=== PATIENT | female | born 1950 | race Caucasian/White ===

== ENCOUNTER → 2023-05-12 07:17 | Outpatient (REF) | payer MEDICARE, OTHER, SELFPAY ==
[2023-05-12 10:04] LABS: ALT (SGPT) 23 U/L (0-35); AST (SGOT) 36 U/L (14-36); Albumin 4.2 g/dl (3.5-5.0); Alkaline Phosphatase 58 U/L (38-126); Blood Urea Nitrogen 26 mg/dl (7-17); Calcium 9.4 mg/dl (8.4-10.2); Carbon Dioxide 28 mmol/L (22-30); Chloride 104 mmol/L (98-107); Creatine Phosphokinase 83 U/L (30-135); Glucose 91 mg/dl (70-99); Potassium 4.3 mmol/L (3.5-5.1); Sodium 137 mmol/L (135-145); Total Bilirubin 1.3 mg/dl (0.2-1.3); Total Protein 6.6 g/dl (6.3-8.2); eGFR > 60.00
[2023-05-13 12:04] LABS: Aldolase 3.2 U/L (1.2-7.6)
== END ==
LOC: REG 07:17
PROVIDERS: ATTENDING PHYSICIAN Internal Medicine
DX: M79.10 Myalgia, unspecified site (principal)
CPT/HCPCS: 36415; 80053; 82085; 82550

== ENCOUNTER → 2023-05-23 10:11 | Outpatient (REF) | payer MEDICARE, OTHER, SELFPAY ==
[2023-05-23 14:13] LABS: Lipase 75 U/L (23-300)
== END ==
LOC: REG 10:11
PROVIDERS: ATTENDING PHYSICIAN Internal Medicine; FAMILY PHYSICIAN Internal Medicine
DX: R11.0 Nausea (principal)
CPT/HCPCS: 36415; 83690

== ENCOUNTER → 2023-06-12 13:11 | Outpatient (REF) | payer MEDICARE, OTHER, SELFPAY | LOC: HWRAD 13:11 | PROVIDERS: ATTENDING PHYSICIAN Internal Medicine; FAMILY PHYSICIAN Internal Medicine | DX: R11.0 Nausea (principal) | CPT/HCPCS: 76700 ==

== ENCOUNTER → 2023-07-06 07:40 | Outpatient (REF) | payer MEDICARE, OTHER, SELFPAY ==
[2023-07-06 08:52] LABS: ALT (SGPT) 18 U/L (0-35); AST (SGOT) 31 U/L (14-36); Albumin 4.1 g/dl (3.5-5.0); Alkaline Phosphatase 57 U/L (38-126); Blood Urea Nitrogen 17 mg/dl (7-17); Calcium 9.6 mg/dl (8.4-10.2); Carbon Dioxide 31 mmol/L (22-30); Chloride 105 mmol/L (98-107); Glucose 101 mg/dl (70-99); HDL Cholesterol 94 mg/dl; LDL Cholesterol, Calculated 118 mg/dl; Potassium 4.5 mmol/L (3.5-5.1); Sodium 139 mmol/L (135-145); Total Bilirubin 1.1 mg/dl (0.2-1.3); Total Cholesterol 227 mg/dl (50-199); Total Protein 6.5 g/dl (6.3-8.2); Triglyceride 78 mg/dl (10-149); Very Low Density Lipoprotein 15 mg/dl (0-30); eGFR > 60.00
[2023-07-07 23:21] LABS: Lipoprotein a (Lp a) 39 mg/dL (<=29)
== END ==
LOC: REG 07:40
PROVIDERS: ATTENDING PHYSICIAN Internal Medicine Cardiovascular Disease; FAMILY PHYSICIAN Internal Medicine
DX: E78.00 Pure hypercholesterolemia, unspecified (principal)
CPT/HCPCS: 36415; 80053; 80061; 83695

== ENCOUNTER → 2023-10-09 07:41 | Outpatient (REF) | payer MEDICARE, OTHER, SELFPAY ==
[2023-10-09 09:09] LABS: ALT (SGPT) 14 U/L (0-35); AST (SGOT) 30 U/L (14-36); Albumin 4.2 g/dl (3.5-5.0); Alkaline Phosphatase 62 U/L (38-126); Blood Urea Nitrogen 20 mg/dl (7-17); Calcium 10.2 mg/dl (8.4-10.2); Carbon Dioxide 32 mmol/L (22-30); Chloride 103 mmol/L (98-107); Glucose 112 mg/dl (70-99); HDL Cholesterol 85 mg/dl; LDL Cholesterol, Calculated 153 mg/dl; Potassium 4.5 mmol/L (3.5-5.1); Sodium 144 mmol/L (135-145); Total Bilirubin 1.2 mg/dl (0.2-1.3); Total Cholesterol 251 mg/dl (50-199); Total Protein 6.6 g/dl (6.3-8.2); Triglyceride 67 mg/dl (10-149); Very Low Density Lipoprotein 13 mg/dl (0-30); eGFR > 60.00
== END ==
LOC: REG 07:41
PROVIDERS: ATTENDING PHYSICIAN Internal Medicine Cardiovascular Disease; FAMILY PHYSICIAN Nurse Practitioner Family
DX: E78.00 Pure hypercholesterolemia, unspecified (principal)
CPT/HCPCS: 36415; 80053; 80061

== ENCOUNTER → 2023-11-23 09:26 | Outpatient (REF) | payer MEDICARE, OTHER, SELFPAY | LOC: MRI 3T 09:26 | PROVIDERS: ATTENDING PHYSICIAN Physician Assistant Surgical; FAMILY PHYSICIAN Family Medicine | DX: M25.561 Pain in right knee (principal) | CPT/HCPCS: 73721 ==

== ENCOUNTER → 2023-11-26 13:22 | Outpatient (REF) | payer MEDICARE, OTHER, SELFPAY ==
[2023-11-26 14:57] LABS: Uric Acid 3.3 mg/dl (2.5-6.2)
== END ==
LOC: REG 13:22
PROVIDERS: ATTENDING PHYSICIAN Family Medicine
DX: M79.675 Pain in left toe(s) (principal)
CPT/HCPCS: 36415; 73630; 84550

== ENCOUNTER → 2023-12-14 11:27 | Outpatient (REF) | payer MEDICARE, OTHER, SELFPAY ==
[2023-12-14 13:11] LABS: % Eosinophils 1.2 % (0-6); % Immature Granulocytes 0.2 % (0-0.5); % Lymphocytes 32.1 % (20.5-51.1); % Monocytes 10.5 % (1.7-9.3); Absolute Eosinophils 0.1 10^3/uL (0-0.7); Absolute Lymphocytes 1.4 10^3/uL (1.2-3.4); Absolute Monocytes 0.4 10^3/uL (0.1-0.6); Absolute Neutrophils 2.3 10^3/uL (1.4-6.5); Hematocrit 40.2 % (37.0-47.0); Hemoglobin 13.7 g/dL (12.0-16.0); Mean Corp Hgb Conc. 34.1 g/dL (33.0-37.0); Mean Corpuscular Hgb 32.7 pg (27.0-31.0); Mean Corpuscular Volume 95.9 fL (81.0-99.0); Mean Platelet Volume 10.8 fL (7.4-10.4); Nucleated Red Blood Cells % 0 %; Platelet Count 251 10^3/uL (130-400); Red Blood Cell Count 4.19 10^6/uL (4.20-5.40); Red Cell Dist. Width 12.6 % (11.5-14.5); White Blood Cell Count 4.2 10^3/uL (4.8-10.8)
[2023-12-14 13:31] LABS: ALT (SGPT) 24 U/L (0-35); AST (SGOT) 37 U/L (14-36); Albumin 4.6 g/dl (3.5-5.0); Alkaline Phosphatase 57 U/L (38-126); Blood Urea Nitrogen 19 mg/dl (7-17); Calcium 9.9 mg/dl (8.4-10.2); Carbon Dioxide 29 mmol/L (22-30); Chloride 102 mmol/L (98-107); Glucose 97 mg/dl (70-99); Potassium 4.8 mmol/L (3.5-5.1); Sodium 140 mmol/L (135-145); Total Bilirubin 0.8 mg/dl (0.2-1.3); Total Protein 7.1 g/dl (6.3-8.2); eGFR > 60.00
[2023-12-14 13:38] LABS: NT-proBNP 122 pg/ml
[2023-12-14 14:01] LABS: TSH Reflex To Free T4 0.98 uIU/ml (0.47-4.68)
== END ==
LOC: RAD 11:27
PROVIDERS: ATTENDING PHYSICIAN Nurse Practitioner Adult Health
DX: R06.02 Shortness of breath (principal); R00.2 Palpitations; F41.1 Generalized anxiety disorder; E03.9 Hypothyroidism, unspecified
CPT/HCPCS: 36415; 71046; 80053; 83880; 84443; 85025

== ENCOUNTER → 2023-12-28 08:11 | Outpatient (REF) | payer MEDICARE, OTHER, SELFPAY ==
[2023-12-28 11:12] LABS: Total Cholesterol 245 mg/dl (50-199); Triglyceride 56 mg/dl (10-149); Very Low Density Lipoprotein 11 mg/dl (0-30)
[2023-12-28 11:23] LABS: HDL Cholesterol 111 mg/dl; LDL Cholesterol, Calculated 123 mg/dl
== END ==
LOC: REG 08:11
PROVIDERS: ATTENDING PHYSICIAN Internal Medicine Cardiovascular Disease; FAMILY PHYSICIAN Family Medicine; REFERRING PHYSICIAN Internal Medicine Cardiovascular Disease
DX: E78.5 Hyperlipidemia, unspecified (principal)
CPT/HCPCS: 36415; 80061

== ENCOUNTER → 2023-12-31 20:12 | Outpatient (REF) | payer MEDICARE, OTHER, SELFPAY | LOC: MRI 20:12 | PROVIDERS: ATTENDING PHYSICIAN Internal Medicine; FAMILY PHYSICIAN Family Medicine | DX: R11.0 Nausea (principal); K83.9 Disease of biliary tract, unspecified | CPT/HCPCS: 74183; A9575 ==

== ENCOUNTER 2024-01-29 02:35 | Emergency (ER) | payer MEDICARE, OTHER, SELFPAY ==
[2024-01-29 02:43] VITALS: BP 120/70
--- NOTE | 2024-01-29 03:15 | ED.GENMED ---
History of Present Illness
<LINDA Alvarez - Last Filed: 01/29/24 03:31>
General
Chief Complaint: Abdominal Symptoms
Source: patient
Time Seen by Provider: 01/29/24 03:02
Nursing documentation reviewed up to this point in time: agreed with
History of Present Illness
History of Present Illness:
Pt is a 73 yo F who presents to the ED with nausea, headache, body aches, and abdominal pain. Pt states that the symptoms began this morning. Pt states that when she felt nauseous, she stuck her fingers down her throat and reports that she threw up
mucus and then brown emesis. Pt states that she has not had an episodes of emesis since. She reports that she took 2 Zofran without relief of nausea. Pt states that she also has abdominal pain in the epigastric region that she describes as crampy.
She states that the pain is intermittent and non-radiating. Pt states that she has been switching with taking Tylenol and Motrin without relief. Pt states that she has not been able to eat or drink fluids the entire day since the symptoms began. Pt
denies fever, chills, diarrhea, cough, nasal congestion, bloating, chest pain.
Past History
<LINDA Alvarez - Last Filed: 01/29/24 03:31>
Past History
ED Past Medical History: GERD, Hypothyroidism, Psychiatric (Anxiety) and Other (Spont. Pneumothorax, Gastritis, Sciatica, UTI, Macular edema); Negative Asthma, HTN, Hypercholesterolemia or IDDM
ED Past Surgical History: Tonsilectomy and Other (Thoracotomy with resection of the lung. cataract surgery,)
Social History
Tobacco: Former smoker
Alcohol: None
Drug: None
Personal:
Living: alone
Employment: Employed
Family History
Family History: Other (aortic stenosis)
Review of Systems
<LINDA Alvarez - Last Filed: 01/29/24 03:31>
Review of Systems
Allergies reviewed?: Yes
Constitutional: Reports other (body aches)
EENT: Reports no symptoms
Respiratory: Reports no symptoms
Cardiac: Reports no symptoms
ABD/GI: Reports abdominal pain, nausea and vomiting
: Reports no symptoms
Neurological: Reports headache
Phy Exam
<LINDA Alvarez - Last Filed: 01/29/24 03:31>
General Physical Exam
General Presentation: well appearing and no apparent distress
General age: appears stated age
General Skin: warm
General Habitus: normal
General Mental: alert
Cardiovascular Exam
Cardiovascular Exam: regular rate/rhythm
Pulmonary Exam
Pulmonary Exam: lungs clear
Gastrointestinal Exam
Gastrointestinal Exam: normal bowel sounds, non tender, soft and non distended
Course
<LINDA Alvarez - Last Filed: 01/29/24 03:31>
Orders/Labs/Results
Orders:
Orders
01/29/24 02:48
Electrocardiogram (*1) Urgent
Reason for Study: Abdominal Pain
EKG- Treatment ONCE
01/29/24 03:31
0.9% Sodium Chloride 1000 ml [Nss] 1,000 ml IV BOLUS
Metoclopramide [Reglan] 10 mg IV NOW STA
Pantoprazole [Protonix IV] 40 mg IV NOW STA
01/29/24 03:42
Complete Blood Count/With Diff Urgent
Comprehensive Metabolic Panel Urgent
Lactic Acid Urgent
Lipase Urgent
Troponin I Urgent
01/29/24 03:52
Acetaminophen 1000MG/100Ml [Ofirmev] 1,000 mg in 100 ml IV ONCE
Acetaminophen IV Indication:: ED Narcotic Naive Pt-ONCE
01/29/24 04:46
Urinalysis Reflex To Culture Urgent
Date Specimen was Collected: 01/29/24
Time Specimen was Collected: 03:57
Abnormal Lab Results
01/29/24
03:42
WBC 4.3 L 10^3/uL
(4.8-10.8)
MCH 32.0 H pg
(27.0-31.0)
Absolute Lymphs (auto) 0.3 L 10^3/uL
(1.2-3.4)
Neutrophils % 82.1 H %
(42.2-75.2)
Lymphocytes % 7.9 L %
(20.5-51.1)
Monocytes % 9.6 H %
(1.7-9.3)
BUN 22 H mg/dl
(7-17)
Glucose 123 H mg/dl
(70-99)
Total Protein 5.7 L g/dl
(6.3-8.2)
01/29/24 03:42
01/29/24 03:42
Vital Signs
Initial and Last Documented VS:
Initial Vital Signs
Temp Pulse Resp BP Pulse Ox
98.3 F 108 26 120/70 100
01/29/24 02:43 01/29/24 02:43 01/29/24 02:43 01/29/24 02:43 01/29/24 02:43
Last Documented Vital Signs
Temp Pulse Resp BP Pulse Ox
98.3 F 108 26 120/70 100
01/29/24 02:43 01/29/24 02:43 01/29/24 02:43 01/29/24 02:43 01/29/24 02:43
Yoanlt;Qian Hawkins DO - Last Filed: 01/29/24 05:08>
Orders/Labs/Results
Orders:
Orders
01/29/24 02:48
Electrocardiogram (*1) Urgent
Reason for Study: Abdominal Pain
EKG- Treatment ONCE
01/29/24 03:31
0.9% Sodium Chloride 1000 ml [Nss] 1,000 ml IV BOLUS
Metoclopramide [Reglan] 10 mg IV NOW STA
Pantoprazole [Protonix IV] 40 mg IV NOW STA
01/29/24 03:42
Complete Blood Count/With Diff Urgent
Comprehensive Metabolic Panel Urgent
Lactic Acid Urgent
Lipase Urgent
Troponin I Urgent
01/29/24 03:52
Acetaminophen 1000MG/100Ml [Ofirmev] 1,000 mg in 100 ml IV ONCE
Acetaminophen IV Indication:: ED Narcotic Naive Pt-ONCE
01/29/24 04:46
Urinalysis Reflex To Culture Urgent
Date Specimen was Collected: 01/29/24
Time Specimen was Collected: 03:57
Abnormal Lab Results
01/29/24
03:42
WBC 4.3 L 10^3/uL
(4.8-10.8)
MCH 32.0 H pg
(27.0-31.0)
Absolute Lymphs (auto) 0.3 L 10^3/uL
(1.2-3.4)
Neutrophils % 82.1 H %
(42.2-75.2)
Lymphocytes % 7.9 L %
(20.5-51.1)
Monocytes % 9.6 H %
(1.7-9.3)
BUN 22 H mg/dl
(7-17)
Glucose 123 H mg/dl
(70-99)
Total Protein 5.7 L g/dl
(6.3-8.2)
01/29/24 03:42
01/29/24 03:42
Vital Signs
Initial and Last Documented VS:
Initial Vital Signs
Temp Pulse Resp BP Pulse Ox
98.3 F 108 26 120/70 100
01/29/24 02:43 01/29/24 02:43 01/29/24 02:43 01/29/24 02:43 01/29/24 02:43
Last Documented Vital Signs
Temp Pulse Resp BP Pulse Ox
98.3 F 108 26 120/70 100
01/29/24 02:43 01/29/24 02:43 01/29/24 02:43 01/29/24 02:43 01/29/24 02:43
<LINDA Alvarez - Last Filed: 01/29/24 03:31>
MDM/Problems Addressed
Differential Diagnosis Includes:
Gastroenteritis
<LINDA Alvarez - Last Filed: 01/29/24 03:31>
*Critical Care Note
Total Time (30-74mins, 75-104mins- exclusive of procedures): Not Applicable
<Qian Hawkins DO - Last Filed: 01/29/24 05:08>
*Pulse Oximetry
Patient hypoxic: no
*EKG
Interpreted by ED Provider?: Yes
Interpretation: normal
Comparison EKG: no changes (Unchanged from previous October 2022)
Rate: normal
Rhythm: sinus
Shafer: normal axis
Interval: normal interval
QRS Pattern: normal QRS
Ischemia: no ischemia
*Gig Tender Interpretation
Rate: normal
Interpretation: normal
Rhythm: sinus
ED Attending Note
<LINDA Alvarez - Last Filed: 01/29/24 03:31>
-
Portions of this chart may have been created with voice recognition software.� Occasional wrong word or��sound alike� substitutions may have occurred due to the inherent limitations of voice recognition software.
<Qian Hawkins DO - Last Filed: 01/29/24 05:08>
ED Attending Note
Patient seen and examined by attending physician: Yes
I performed the substantive portion of visit, reviewed & personally made and approve the management plan that is documented in note by myself or CHIDI.: Yes
ED Attending Note:
This is a 73-year-old woman, works at [employer]. Complains of nausea that began near 24 hours ago with only small amount of vomiting yesterday morning after forcing herself to vomit. Despite doing so she continues with nausea,
generalized aches, moderate fatigue. She was worried that she contracted norovirus but admits that she has not had diarrhea. No abdominal pain. With nausea, intermittent dry heaves she now notes some lower substernal chest discomfort. She has
not had a cough nor shortness of breath.
She has been taking Zofran x 2 yesterday without relief of nausea. She has also been taking Motrin as well as Tylenol with last dose around 8�9 PM.
GENERAL: 73-year-old woman appears somewhat younger than stated age, bright and alert, pleasant, appears in no acute distress. Low-grade fever noted 99.4 �F.
EYE: pupils equal and reactive. anicteric
NECK: Supple, nontender, no meningismus, no significant adenopathy.
ENT: posterior pharynx is clear, oral mucosa is minimally dry. TM clear b/l, nares patent.
CARDIAC: Regular rate and rhythm. no murmur.
LUNGS: Clear breath sounds bilaterally, no acute respiratory distress, no wheezes/rales/rhonchi
ABDOMEN: Soft, nondistended, without focal tenderness, no r/g, no cvat. normoactive BS.
NEUROLOGICAL: Alert and oriented x3, no focal neuro deficits. Gait is steady.
SKIN: Warm and dry, normal color, skin intact. No rash.
MUSCULOSKELETAL: No C/C/E. peripheral pulses are full and equal b/l. No palpable tenderness.
PSYCH: Normal and appropriate interaction.
Concern for acute viral illness, gastroenteritis, GERD, ACS is much less likely. Concern for electrolyte abnormality, dehydration.
Will initiate IV fluids, trial IV dose of Reglan, Protonix and will give an IV dose of Tylenol for low-grade fever.
EKG is unremarkable and unchanged from previous.
Will check labs.
05:00
Patient feeling markedly improved. Much less nausea. No abdominal pain nor chest discomfort. Tolerating sips of cely catracho.
Labs are unremarkable showing mildly low white blood cell count which is similar and unchanged from previous.
Chemistries are unremarkable as is troponin.
She continues with borderline low-grade fever at 99 �F and I suspect viral syndrome.
Recommend supportive measures, limiting diet to clear liquids over the next 24 hours then slowly advance as tolerated.
Tylenol versus ibuprofen as needed for fever, aches.
Will prescribe Reglan for as needed nausea.
Prompt follow-up with PCP for recheck.
Return precautions discussed.
Patient knows to remain home from work until fever free for 24 hours.
Discharge Plan
Departure
Patient Disposition: Home (Routine Discharge)
Date of Disposition: 01/29/24
Time of Disposition: 05:05
Patient with high blood pressure during this ER visit?: No
Condition: Good
Discharge Problem:
Acute viral syndrome
Instructions: Nausea and Vomiting, Adult (DC), Fever, Adult ED
Prescriptions:
New
metoclopramide HCl [Reglan] 10 mg tablet
10 mg PO Q6H PRN (Reason: nausea and vomiting) Qty: 14 0RF
No Action
levothyroxine 75 MCG tablet
75 mcg PO DAILY
lorazepam 1 MG tablet
1 mg PO TIDPRN PRN (Reason: anxiety)
ondansetron 4 MG tablet,disintegrating
4 mg PO TIDPRN PRN (Reason: nausea/vomiting) Qty: 8 0RF
Praluent Syringe 75 mg/mL Syringe
7 mg SC Q2W
pantoprazole 40 MG tablet,delayed release (DR/EC)
40 mg PO DAILY
Referrals:
Liane Parson MD [Family Provider] - Call in 1-3 days for appt
Interventions
Interventions:
*Risk Screen - Suicide Last Done: 01/29/24 02:37
*General Assessment Last Done: 01/29/24 03:50
*Neglect/Abuse Screening Last Done: 01/29/24 02:37
ED- Fall Risk Assessment Last Done: 01/29/24 04:20
*ED COVID-19 Vaccine History Last Done: 01/29/24 03:50
ZO-Tmnkgx-Dgurtjgzyf Assessment Last Done: 01/29/24 04:20
ED- Cardiac Assessment Last Done: 01/29/24 04:20
Discharge Date and Time
Print Language: PUERTO RICAN
[2024-01-29 03:41] VITALS: BMI 23.8
[2024-01-29] MEDS: REGLAN 10 MG IV (03:49)
[2024-01-29] MEDS: PROTONIX IV 40 MG IV (03:49)
[2024-01-29] MEDS: NSS 1000 IV (03:49)
[2024-01-29] MEDS: OFIRMEV 100 IV (03:59)
[2024-01-29 04:04] LABS: % Basophils 0.2 % (0-2); % Immature Granulocytes 0.2 % (0-0.5); % Lymphocytes 7.9 % (20.5-51.1); % Monocytes 9.6 % (1.7-9.3); % Neutrophils 82.1 % (42.2-75.2); Absolute Lymphocytes 0.3 10^3/uL (1.2-3.4); Absolute Monocytes 0.4 10^3/uL (0.1-0.6); Absolute Neutrophils 3.5 10^3/uL (1.4-6.5); Hematocrit 40.1 % (37.0-47.0); Hemoglobin 13.6 g/dL (12.0-16.0); Mean Corp Hgb Conc. 33.9 g/dL (33.0-37.0); Mean Corpuscular Volume 94.4 fL (81.0-99.0); Nucleated Red Blood Cells % 0 %; Platelet Count 197 10^3/uL (130-400); Red Blood Cell Count 4.25 10^6/uL (4.20-5.40); White Blood Cell Count 4.3 10^3/uL (4.8-10.8)
[2024-01-29 04:21] LABS: ALT (SGPT) 21 U/L (0-35); AST (SGOT) 32 U/L (14-36); Albumin 3.5 g/dl (3.5-5.0); Alkaline Phosphatase 47 U/L (38-126); Blood Urea Nitrogen 22 mg/dl (7-17); Calcium 8.5 mg/dl (8.4-10.2); Carbon Dioxide 25 mmol/L (22-30); Chloride 105 mmol/L (98-107); Estimated Creatinine Clearance 65 ml/min; Glucose 123 mg/dl (70-99); Lipase 51 U/L (23-300); Potassium 3.7 mmol/L (3.5-5.1); Sodium 136 mmol/L (135-145); Total Bilirubin 1.2 mg/dl (0.2-1.3); Total Protein 5.7 g/dl (6.3-8.2); eGFR > 60.00
[2024-01-29 04:28] LABS: Troponin I < 0.012 ng/ml
[2024-01-29 04:41] LABS: Lactic Acid 0.9 mmol/L (0.7-2.0)
[2024-01-29 05:01] LABS: Urine Albumin Negative (Neg - Trace); Urine Bilirubin Negative (Negative); Urine Character Clear (Clear); Urine Color Yellow; Urine Glucose Negative (Negative); Urine Ketone 2+ (Negative); Urine Leukocyte Trace (Negative); Urine Nitrite Negative (Negative); Urine Occult Blood Negative (Negative); Urine Urobilinogen Negative (Neg - 1+)
[2024-01-29 05:35] LABS: Urine Mucus Many
[2024-01-29 05:37] LABS: Urine Bacteria Moderate (Negative); Urine Squamous Cell >30 /LPF (Few); Urine Urothelial Cell >30 /LPF (FEW); Urine White Cell 30-40 /HPF (0-5)
== END 2024-01-29 06:09 | disposition home or self-care (01) ==
LOC: EMR 02:35
PROVIDERS: EMERGENCY PHYSICIAN Emergency Medicine; FAMILY PHYSICIAN Family Medicine
DX: B34.9 Viral infection, unspecified (principal); R11.2 Nausea with vomiting, unspecified; R51.9 Headache, unspecified; R10.13 Epigastric pain; R07.89 Other chest pain; K21.9 Gastro-esophageal reflux disease without esophagitis; E03.9 Hypothyroidism, unspecified; F41.9 Anxiety disorder, unspecified; M54.30 Sciatica, unspecified side; Z87.891 Personal history of nicotine dependence; Z88.1 Allergy status to other antibiotic agents; Z88.3 Allergy status to other anti-infective agents; Z88.0 Allergy status to penicillin; Z88.8 Allergy status to other drugs, medicaments and biological substances
CPT/HCPCS: 99284; 96374; 96375 ×2; 96361; 80053; 81003; 81015; 83605; 83690; 84484; 85025; 87086; 93005

== ENCOUNTER → 2024-02-07 11:07 | Outpatient (REF) | payer MEDICARE, OTHER, SELFPAY | LOC: WDC 11:07 | PROVIDERS: ATTENDING PHYSICIAN Nurse Practitioner Adult Health | DX: Z12.31 Encounter for screening mammogram for malignant neoplasm of breast (principal) | CPT/HCPCS: 77063; 77067 ==

== ENCOUNTER → 2024-02-07 13:59 | Outpatient (REF) | payer MEDICARE, OTHER, SELFPAY | LOC: HWRCS 13:59 | PROVIDERS: ATTENDING PHYSICIAN Internal Medicine Cardiovascular Disease; FAMILY PHYSICIAN Family Medicine | DX: R06.09 Other forms of dyspnea (principal) | CPT/HCPCS: 93306 ==

== ENCOUNTER → 2024-02-18 11:45 | Outpatient (REF) | payer MEDICARE, OTHER, SELFPAY | LOC: RAD 11:45 | PROVIDERS: ATTENDING PHYSICIAN Nurse Practitioner Adult Health; FAMILY PHYSICIAN Family Medicine | DX: R10.13 Epigastric pain (principal); R05.1 Acute cough | CPT/HCPCS: 71046 ==

== ENCOUNTER → 2024-02-28 08:25 | Outpatient (REF) | payer MEDICARE, OTHER, SELFPAY | LOC: DHCBC/DCA 08:25 | PROVIDERS: ATTENDING PHYSICIAN Internal Medicine Cardiovascular Disease; FAMILY PHYSICIAN Family Medicine | DX: R06.09 Other forms of dyspnea (principal) | CPT/HCPCS: 78452; 93017; A9500 ==

== ENCOUNTER 2024-03-05 06:15 | Day surgery (SDC) | payer MEDICARE, OTHER, SELFPAY ==
[2024-03-05 08:36] VITALS: BP 135/70
[2024-03-05 08:48] VITALS: BMI 23.0
[2024-03-05 10:34] VITALS: BP 101/75
[2024-03-05 10:45] VITALS: BP 110/69
[2024-03-05 11:00] VITALS: BP 127/86
== END 2024-03-05 11:15 | disposition home or self-care (01) ==
LOC: SDS 06:15
PROVIDERS: ATTENDING PHYSICIAN Internal Medicine Gastroenterology
DX: K83.8 Other specified diseases of biliary tract (principal); K86.9 Disease of pancreas, unspecified
CPT/HCPCS: 43237

== ENCOUNTER 2024-04-29 10:58 | Emergency (ER) | payer MEDICARE, OTHER, SELFPAY ==
[2024-04-29 11:01] VITALS: BP 143/89
[2024-04-29 12:33] LABS: % Basophils 1.2 % (0-2); % Eosinophils 0.7 % (0-6); % Immature Granulocytes 0.2 % (0-0.5); % Monocytes 9.1 % (1.7-9.3); % Neutrophils 57.8 % (42.2-75.2); Absolute Basophils 0.1 10^3/uL (0-0.2); Absolute Lymphocytes 1.3 10^3/uL (1.2-3.4); Absolute Monocytes 0.4 10^3/uL (0.1-0.6); Absolute Neutrophils 2.3 10^3/uL (1.4-6.5); Hematocrit 39.9 % (37.0-47.0); Hemoglobin 13.7 g/dL (12.0-16.0); Mean Corp Hgb Conc. 34.3 g/dL (33.0-37.0); Mean Corpuscular Volume 93.2 fL (81.0-99.0); Mean Platelet Volume 10.4 fL (7.4-10.4); Nucleated Red Blood Cells % 0 %; Platelet Count 236 10^3/uL (130-400); Red Blood Cell Count 4.28 10^6/uL (4.20-5.40); Red Cell Dist. Width 13.1 % (11.5-14.5); White Blood Cell Count 4.1 10^3/uL (4.8-10.8)
[2024-04-29 12:45] LABS: INR 1.05
[2024-04-29 12:49] LABS: ALT (SGPT) 18 U/L (0-35); AST (SGOT) 29 U/L (14-36); Albumin 4.6 g/dl (3.5-5.0); Alkaline Phosphatase 63 U/L (38-126); Blood Urea Nitrogen 21 mg/dl (7-17); Calcium 9.8 mg/dl (8.4-10.2); Carbon Dioxide 27 mmol/L (22-30); Chloride 102 mmol/L (98-107); Glucose 99 mg/dl (70-99); Potassium 4.7 mmol/L (3.5-5.1); Sodium 138 mmol/L (135-145); Total Bilirubin 1.3 mg/dl (0.2-1.3); Total Protein 6.9 g/dl (6.3-8.2); eGFR > 60.00
--- NOTE | 2024-04-29 12:53 | ED.GENMED ---
History of Present Illness
General
Chief Complaint: Abdominal Symptoms
Time Seen by Provider: 04/29/24 11:37
History of Present Illness
History of Present Illness:
73-year-old female with history of GERD presenting to the ER for concern of blood in her stool. She reports today after she had a bowel movement, the stool was brown, however she noticed 'black specks' in her stool. She denies consuming any
abnormal food in the past few days. She denies history of GI bleeding in the past. She is on aspirin, otherwise no thinners. She does note that she had some dental work completed about 2 weeks ago, has intermittently been taking ibuprofen,
however no more than 600 mg. Denies associate abdominal pain. Denies chest pain, difficulty breathing, lightheadedness. Denies additional acute medical complaints
Past History
Past History
ED Past Medical History: GERD, Hypothyroidism, Psychiatric (Anxiety) and Other (Spont. Pneumothorax, Gastritis, Sciatica, UTI, Macular edema); Negative Asthma, HTN, Hypercholesterolemia or IDDM
ED Past Surgical History: Tonsilectomy and Other (Thoracotomy with resection of the lung. cataract surgery,)
Social History
Tobacco: Former smoker
Alcohol: None
Drug: None
Personal:
Living: alone
Employment: Employed
Family History
Family History: Other (aortic stenosis)
Phy Exam
Physical Exam
Physical Exam:
General: Well-appearing, no clinical signs of dehydration, nontoxic and in no acute distress
HEENT: protecting airway
Neck: appears supple
CV: Normal heart rate, regular rhythm
Resp: No accessory muscle use, no increased work of breathing, lungs clear to auscultation bilaterally
Abd: Soft and non-distended, no tenderness to palpation, normal bowel sounds
Extremities: No deformities, no swelling, no erythema, pulses and sensation intact
Neuro: alert, no focal neurologic deficit
: Minimal stool obtained, Hemoccult negative. No hemorrhoids
Rectal: deferred
Psych: Normal affect
Skin: Intact
Course
Orders/Labs/Results
Orders:
Orders
04/29/24 12:20
Complete Blood Count/With Diff Urgent
Comprehensive Metabolic Panel Urgent
Prothrombin Time Urgent
Abnormal Lab Results
04/29/24
12:20
WBC 4.1 L 10^3/uL
(4.8-10.8)
MCH 32.0 H pg
(27.0-31.0)
BUN 21 H mg/dl
(7-17)
04/29/24 12:20
04/29/24 12:20
Vital Signs
Initial and Last Documented VS:
Initial Vital Signs
Temp Pulse Resp BP Pulse Ox
97.7 F 79 16 143/89 99
04/29/24 11:01 04/29/24 11:01 04/29/24 11:01 04/29/24 11:01 04/29/24 11:01
Last Documented Vital Signs
Temp Pulse Resp BP Pulse Ox
97.7 F 79 20 143/89 99
04/29/24 11:01 04/29/24 11:01 04/29/24 12:32 04/29/24 11:01 04/29/24 11:01
MDM/Problems Addressed
MDM/Problems Addressed:
73-year-old female with history of GERD presenting for concern of blood per stool. Vital signs are normal.
On exam patient is very well-appearing, no acute distress or discomfort. She is currently asymptomatic. Overall low suspicion for severe GI hemorrhage. Notes that her stool was overall brown in color. In addition, hemodynamically stable with
normal blood pressure, no tachycardia. On rectal exam, no haris hematemesis. Did not obtain adequate stool sample, however bleeding seen, Hemoccult negative. Without concern for gastritis or peptic ulcer disease, no present pain to the upper
abdomen. Will screen with laboratory analysis.
12:55 - Labs are unremarkable, normal hemoglobin, normal renal function. Again no clinical signs of dehydration or volume loss. No significant concern for anemia or blood loss. Ultimately feel stable for discharge with close interval follow-up
with the primary care doctor. If symptoms are persisting, may need return to the hospital versus GI follow-up for colonoscopy. Return precautions discussed and patient verbalized understanding
*Critical Care Note
Total Time (30-74mins, 75-104mins- exclusive of procedures): Not Applicable
ED Attending Note
-
Portions of this chart may have been created with voice recognition software.� Occasional wrong word or��sound alike� substitutions may have occurred due to the inherent limitations of voice recognition software.
Discharge Plan
Departure
Prescriptions:
No Action
levothyroxine 75 MCG tablet
75 mcg PO DAILY
lorazepam 1 MG tablet
1 mg PO TIDPRN PRN (Reason: anxiety)
ondansetron 4 MG tablet,disintegrating
4 mg PO TIDPRN PRN (Reason: nausea/vomiting) Qty: 8 0RF
pantoprazole 40 MG tablet,delayed release (DR/EC)
20 mg PO DAILY
aspirin [Aspir-81] 81 mg Tablet,Delayed Release (Dr/Ec)
81 mg PO DAILY
Benefiber (guar gum) Packet
1 tbsp PO DAILY
calcium 600 mg Capsule
2 PO DAILY
Rx Instructions:
2 gummies
magnesium
2 PO DAILY
Rx Instructions:
2 gummies
B12
1 tab PO DAILY
Vitamin D3
1 tab PO DAILY
Referrals:
Tanya Costello CRNP [Family Provider] -
Interventions
Interventions:
*ED COVID-19 Vaccine History Last Done: 04/29/24 12:18
FT-Nlxhkb-Paetqrauok Assessment Last Done: 04/29/24 12:32
Discharge Date and Time
Print Language: SLOVAK
== END 2024-04-29 13:20 | disposition home or self-care (01) ==
LOC: EMR 10:58
PROVIDERS: EMERGENCY PHYSICIAN Student in an Organized Health Care Education/Training Program; FAMILY PHYSICIAN Nurse Practitioner Adult Health
DX: K92.1 Melena (principal); K21.9 Gastro-esophageal reflux disease without esophagitis; E03.9 Hypothyroidism, unspecified; F41.9 Anxiety disorder, unspecified; H35.81 Retinal edema; M54.30 Sciatica, unspecified side; Z79.82 Long term (current) use of aspirin; Z87.891 Personal history of nicotine dependence; Z87.440 Personal history of urinary (tract) infections; Z88.1 Allergy status to other antibiotic agents; Z88.3 Allergy status to other anti-infective agents; Z88.0 Allergy status to penicillin; Z88.8 Allergy status to other drugs, medicaments and biological substances
CPT/HCPCS: 99283; 80053; 85025; 85610

== ENCOUNTER → 2024-07-04 07:19 | Outpatient (REF) | payer MEDICARE, OTHER, SELFPAY ==
[2024-07-04 08:19] LABS: % Basophils 1.5 % (0-2); % Eosinophils 3.4 % (0-6); % Immature Granulocytes 0.2 % (0-0.5); % Lymphocytes 32.6 % (20.5-51.1); % Monocytes 10.6 % (1.7-9.3); % Neutrophils 51.7 % (42.2-75.2); Absolute Basophils 0.1 10^3/uL (0-0.2); Absolute Eosinophils 0.2 10^3/uL (0-0.7); Absolute Lymphocytes 1.7 10^3/uL (1.2-3.4); Absolute Monocytes 0.6 10^3/uL (0.1-0.6); Absolute Neutrophils 2.7 10^3/uL (1.4-6.5); Hematocrit 41.2 % (37.0-47.0); Hemoglobin 13.9 g/dL (12.0-16.0); Mean Corp Hgb Conc. 33.7 g/dL (33.0-37.0); Mean Corpuscular Hgb 32.4 pg (27.0-31.0); Mean Platelet Volume 10.9 fL (7.4-10.4); Nucleated Red Blood Cells % 0 %; Platelet Count 225 10^3/uL (130-400); Red Blood Cell Count 4.29 10^6/uL (4.20-5.40); Red Cell Dist. Width 12.8 % (11.5-14.5); White Blood Cell Count 5.3 10^3/uL (4.8-10.8)
[2024-07-04 09:01] LABS: ALT (SGPT) 16 U/L (0-35); AST (SGOT) 27 U/L (14-36); Albumin 4.2 g/dl (3.5-5.0); Alkaline Phosphatase 56 U/L (38-126); Blood Urea Nitrogen 20 mg/dl (7-17); Calcium 9.7 mg/dl (8.4-10.2); Carbon Dioxide 28 mmol/L (22-30); Chloride 108 mmol/L (98-107); Glucose 107 mg/dl (70-99); HDL Cholesterol 92 mg/dl; LDL Cholesterol, Calculated 137 mg/dl; Potassium 5.2 mmol/L (3.5-5.1); Sodium 141 mmol/L (135-145); Total Bilirubin 0.9 mg/dl (0.2-1.3); Total Cholesterol 250 mg/dl (50-199); Total Protein 6.6 g/dl (6.3-8.2); Triglyceride 107 mg/dl (10-149); Very Low Density Lipoprotein 21 mg/dl (0-30); eGFR > 60.00
[2024-07-04 09:37] LABS: TSH Reflex To Free T4 1.93 uIU/ml (0.47-4.68)
[2024-07-04 10:06] LABS: Glycohemoglobin (HgbA1c) 5.6 % (4.0-5.6)
== END ==
LOC: REG 07:19
PROVIDERS: ATTENDING PHYSICIAN Family Medicine
DX: I25.10 Atherosclerotic heart disease of native coronary artery without angina pectoris (principal); E03.9 Hypothyroidism, unspecified; R79.89 Other specified abnormal findings of blood chemistry; E53.8 Deficiency of other specified B group vitamins; R73.03 Prediabetes
CPT/HCPCS: 36415; 80053; 80061; 83036; 84443; 85025

== ENCOUNTER → 2024-07-22 12:59 | Outpatient (REF) | payer MEDICARE, OTHER, SELFPAY | LOC: HWRAD 12:59 | PROVIDERS: ATTENDING PHYSICIAN Family Medicine | DX: R59.0 Localized enlarged lymph nodes (principal) | CPT/HCPCS: 76536 ==

== ENCOUNTER → 2024-08-25 09:52 | Outpatient (REF) | payer MEDICARE, OTHER, SELFPAY | LOC: RST 09:52 | PROVIDERS: ATTENDING PHYSICIAN Nurse Practitioner Family | DX: R13.10 Dysphagia, unspecified (principal) | CPT/HCPCS: 74230; 92611 ==

== ENCOUNTER → 2024-11-20 09:29 | Outpatient (REF) | payer MEDICARE, OTHER, SELFPAY ==
[2024-11-20 10:33] LABS: Hematocrit 41.2 % (37.0-47.0); Hemoglobin 14.1 g/dL (12.0-16.0); Mean Corp Hgb Conc. 34.2 g/dL (33.0-37.0); Mean Corpuscular Volume 93.6 fL (81.0-99.0); Nucleated Red Blood Cells % 0 %; Platelet Count 216 10^3/uL (130-400); Red Cell Dist. Width 12.6 % (11.5-14.5)
[2024-11-20 11:19] LABS: ALT (SGPT) 17 U/L (0-35); AST (SGOT) 27 U/L (14-36); Albumin 4.5 g/dl (3.5-5.0); Alkaline Phosphatase 60 U/L (38-126); Blood Urea Nitrogen 23 mg/dl (7-17); Calcium 10.0 mg/dl (8.4-10.2); Carbon Dioxide 29 mmol/L (22-30); Chloride 104 mmol/L (98-107); Glucose 95 mg/dl (70-99); Potassium 4.7 mmol/L (3.5-5.1); Sodium 139 mmol/L (135-145); Total Protein 7.1 g/dl (6.3-8.2); eGFR > 60.00
== END ==
LOC: REG 09:29
PROVIDERS: ATTENDING PHYSICIAN Family Medicine; REFERRING PHYSICIAN Internal Medicine Cardiovascular Disease
DX: R00.0 Tachycardia, unspecified (principal); R00.2 Palpitations
CPT/HCPCS: 36415; 80053; 84443; 85025

== ENCOUNTER → 2024-11-22 08:53 | Outpatient (REF) | payer MEDICARE, OTHER, SELFPAY | LOC: RCS 08:53 | PROVIDERS: ATTENDING PHYSICIAN Family Medicine | DX: R00.2 Palpitations (principal); R00.0 Tachycardia, unspecified | CPT/HCPCS: 93225; 93226 ==

== ENCOUNTER → 2024-11-29 09:06 | Outpatient (REF) | payer MEDICARE, OTHER, SELFPAY | LOC: RCS 09:06 | PROVIDERS: ATTENDING PHYSICIAN Family Medicine | DX: R00.0 Tachycardia, unspecified (principal); R00.2 Palpitations | CPT/HCPCS: 93306 ==

== ENCOUNTER 2025-01-23 17:39 | Emergency (ER) | payer MEDICARE, OTHER, SELFPAY ==
[2025-01-23 17:44] VITALS: BP 149/100
[2025-01-23 17:51] VITALS: BP 144/102
[2025-01-23 18:12] LABS: Hematocrit 38.6 % (37.0-47.0); Hemoglobin 13.1 g/dL (12.0-16.0); Mean Corp Hgb Conc. 33.9 g/dL (33.0-37.0); Mean Corpuscular Volume 93.0 fL (81.0-99.0); Nucleated Red Blood Cells % 0 %; Platelet Count 219 10^3/uL (130-400); Red Cell Dist. Width 13.5 % (11.5-14.5)
[2025-01-23 18:32] LABS: Blood Urea Nitrogen 25 mg/dl (7-17); Calcium 9.0 mg/dl (8.4-10.2); Carbon Dioxide 25 mmol/L (22-30); Chloride 104 mmol/L (98-107); Glucose 119 mg/dl (70-99); Sodium 135 mmol/L (135-145); eGFR > 60.00
[2025-01-23 18:41] LABS: Troponin I < 0.012 ng/ml
--- NOTE | 2025-01-23 19:54 | ED.GENMED ---
History of Present Illness
General
Chief Complaint: Breathing Problem
Source: patient
Exam Limitations: none
Time Seen by Provider: 01/23/25 19:53
History of Present Illness
History of Present Illness:
74yoF with a history of hypothyroidism, hyperlipidemia with statin intolerance, and GERD presenting for evaluation of shortness of breath. Patient reports dyspnea over the past several days. She typically walks several miles daily and was short of
breath during her walk 3 days ago. She has been cognizant of her breathing since then. She played pickleball today and had to stop for 15 minutes because she developed heartburn. Her heart rate has also been elevated recently. Her heart rate is
typically in the 50s at nighttime but has been in the 90s. No chest pain or leg swelling. Her quantitative developer is Dr. Andres. She had an echocardiogram in November of this year which showed an EF of 55% with moderate aortic regurgitation. No
history of coronary artery disease.
Past History
Past History
ED Past Medical History: GERD, Hypothyroidism, Psychiatric (Anxiety) and Other (Spont. Pneumothorax, Gastritis, Sciatica, UTI, Macular edema); Negative Asthma, HTN, Hypercholesterolemia or IDDM
ED Past Surgical History: Tonsilectomy and Other (Thoracotomy with resection of the lung. cataract surgery,)
Social History
Tobacco: Former smoker
Alcohol: None
Drug: None
Personal:
Living: alone
Employment: Employed
Family History
Family History: Other (aortic stenosis)
Phy Exam
General Physical Exam
General Presentation: well appearing and no apparent distress
General age: appears stated age
General Skin: warm and dry
General Habitus: normal
General Mental: alert
Cardiovascular Exam
Cardiovascular Exam: regular rate/rhythm, no edema, no murmur and normal peripheral pulses
Pulmonary Exam
Pulmonary Exam: lungs clear, no respiratory distress, no rales, no crackles, no rhonchi and no wheezing
Neurological Exam
Neurological Exam: alert
Mitzi Coma Scale
Eye Opening: Spontaneous
Verbal Response: Oriented
Motor Response: Obeys Commands
GCS Total Score: 15
Skin Exam
Skin Exam: normal color and warm/dry
Psychiatric Exam
Psychiatric Exam: normal mood/affect
Scores
Heart Failure Risk
Heart Failure Risk Score: Not Applicable
Course
Orders/Labs/Results
Orders:
Orders
01/23/25 17:40
EKG [Electrocardiogram (*1)] Urgent
Reason for Study: Chest Pain
EKG- Treatment ONCE
01/23/25 18:01
Basic Metabolic Panel Urgent
Complete Blood Count/With Diff Urgent
Troponin I Urgent
01/23/25 20:09
Add On- LAB Urgent
Tests Added?: BNP, TSH
Cardiac Monitoring- Treatment ONCE
EKG- Treatment ONCE
01/23/25 20:19
D-Dimer Urgent
LFT [Gakkc-Khxw-Xgialyj] Urgent
Potassium Urgent
TSH Urgent
Comment: ADD ON
01/23/25 20:55
CR Chest - 2 Views Urgent
Comment:
Reason For Exam: SOB
01/23/25 21:00
Electrocardiogram (*1) Urgent
Reason for Study: Shortness of Breath
01/23/25 21:20
NT-proBNP Urgent
Comment: ADD ON
Troponin I Urgent
Abnormal Lab Results
01/23/25 01/23/25
18:01 20:19
RBC 4.15 L 10^6/uL
(4.20-5.40)
MCH 31.6 H pg
(27.0-31.0)
Monocytes % 10.5 H %
(1.7-9.3)
D-Dimer 0.57 H ug/mlFEU
(0.00-0.50)
BUN 25 H mg/dl
(7-17)
Glucose 119 H mg/dl
(70-99)
01/23/25 18:01
01/23/25 20:19
Vital Signs
Initial and Last Documented VS:
Initial Vital Signs
Temp Pulse Resp BP Pulse Ox
97.6 F 93 18 149/100 97
01/23/25 17:44 01/23/25 17:44 01/23/25 17:44 01/23/25 17:44 01/23/25 17:44
Last Documented Vital Signs
Temp Pulse Resp BP Pulse Ox
97.6 F 83 18 159/90 97
01/23/25 17:44 01/23/25 22:45 01/23/25 22:45 01/23/25 22:45 01/23/25 22:45
MDM/Problems Addressed
Differential Diagnosis Includes:
74yoF here with SOB x several days. Had heartburn earlier today while playing pickleball but no chest pain. She is hypertensive with otherwise normal vital signs. Oxygen saturation 98-99% during exam. Lungs clear to auscultation. No peripheral
edema noted. Differential diagnosis includes but is not limited to: Stable angina, ACS, PE, CHF, pneumonia, symptomatic anemia
Initial ED plan: Workup initiated in triage. EKG shows normal sinus rhythm without ischemic changes and troponin within normal limits. Hemoglobin normal. Will check D-dimer, TSH, repeat troponin/EKG, and chest x-ray.
*Pulse Oximetry
SaO2: 97
Patient hypoxic: no
*EKG
Interpreted by ED Provider?: Yes
EKG Intrepretation Date: 01/23/25
Heart Rate: 95
Rate: normal
Rhythm: sinus and PVC's
[place]: normal axis
Interval: normal interval
QRS Pattern: normal QRS
Ischemia: no ischemia
*Critical Care Note
Total Time (30-74mins, 75-104mins- exclusive of procedures): Not Applicable
Update Note
Update Note:
D-dimer 0.57 which corrects for age. BNP normal. Repeat EKG unchanged and troponin remains undetectable. CXR is clear. Patient remains well-appearing on reassessment and is minimally symptomatic. No indication for hospitalization. Given that
symptoms worsened with exertion, she was instructed to follow-up closely with her quantitative developer. She was advised to avoid exercise or strenuous activity until she is able to see her quantitative developer. ED return precautions reviewed. Patient in
agreement with plan and was discharged in stable condition.
ED Attending Note
-
Portions of this chart may have been created with voice recognition software.� Occasional wrong word or��sound alike� substitutions may have occurred due to the inherent limitations of voice recognition software.
Discharge Plan
Departure
Patient Disposition: Home (Routine Discharge)
Date of Disposition: 01/23/25
Time of Disposition: 22:28
Patient with high blood pressure during this ER visit?: Yes
Discharge Problem:
Shortness of breath
Instructions: Chest Pain DCA Follow Up
Prescriptions:
No Action
levothyroxine 75 MCG tablet
75 mcg PO DAILY
lorazepam 1 MG tablet
1 mg PO TIDPRN PRN (Reason: anxiety)
ondansetron 4 MG tablet,disintegrating
4 mg PO TIDPRN PRN (Reason: nausea/vomiting) Qty: 8 0RF
pantoprazole 40 MG tablet,delayed release (DR/EC)
20 mg PO DAILY
aspirin [Aspir-81] 81 mg Tablet,Delayed Release (Dr/Ec)
81 mg PO DAILY
Benefiber (guar gum) Packet
1 tbsp PO DAILY
calcium 600 mg Capsule
2 PO DAILY
Rx Instructions:
2 gummies
magnesium
2 PO DAILY
Rx Instructions:
2 gummies
B12
1 tab PO DAILY
Vitamin D3
1 tab PO DAILY
Referrals:
Liane Parson MD [Family Provider, [facility]]
Stand Alone Forms: Return to Work
Activity Restrictions/Additional Instructions:
The cardiology office should call you on Sunday to schedule a follow-up appointment. Please call the office if you do not hear from them.
Return to the ER immediately with any new or worsening symptoms.
Interventions
Interventions:
*Risk Screen - Suicide Last Done: 01/23/25 17:44
*General Assessment Last Done: 01/23/25 17:44
*Neglect/Abuse Screening Last Done: 01/23/25 17:44
*ED COVID-19 Vaccine History Last Done: 01/23/25 17:44
*ED Influenza Vaccine History Last Done: 01/23/25 17:44
*Nursing Disposition Last Done: 01/23/25 22:49
ED- Cardiac Assessment Last Done: 01/23/25 20:15
ED- Pulmonary Assessment Last Done: 01/23/25 20:15
Discharge Date and Time
Discharge Date/Time: 01/23/25 22:50
Print Language: SAUDI ARABIAN
[2025-01-23 20:11] VITALS: BMI 24.3
[2025-01-23 20:12] VITALS: BP 156/82
[2025-01-23 20:38] LABS: D-Dimer 0.57 ug/mlFEU (0.00-0.50)
[2025-01-23 20:45] LABS: ALT (SGPT) 18 U/L (0-35); AST (SGOT) 29 U/L (14-36); Albumin 3.9 g/dl (3.5-5.0); Alkaline Phosphatase 64 U/L (38-126); Potassium 4.2 mmol/L (3.5-5.1); Total Protein 6.3 g/dl (6.3-8.2)
[2025-01-23 21:00] VITALS: BP 159/90
[2025-01-23 21:29] LABS: TSH 0.80 uIU/ml (0.47-4.68)
[2025-01-23 21:58] LABS: Troponin I < 0.012 ng/ml
[2025-01-23 22:45] VITALS: BP 159/90
== END 2025-01-23 22:50 | disposition home or self-care (01) ==
LOC: EMR 17:39
PROVIDERS: Emergency Medicine; Physician Assistant; EMERGENCY PHYSICIAN Emergency Medicine; FAMILY PHYSICIAN Family Medicine
DX: R06.02 Shortness of breath (principal); I35.1 Nonrheumatic aortic (valve) insufficiency; E78.5 Hyperlipidemia, unspecified; E03.9 Hypothyroidism, unspecified; K21.9 Gastro-esophageal reflux disease without esophagitis; F41.9 Anxiety disorder, unspecified; Z87.891 Personal history of nicotine dependence; Z82.49 Family history of ischemic heart disease and other diseases of the circulatory system
CPT/HCPCS: 99284; 71046; 80048; 80076; 83880; 84132; 84443; 84484; 85025; 85379; 93005

== ENCOUNTER → 2025-02-10 10:46 | Outpatient (REF) | payer MEDICARE, OTHER, SELFPAY | LOC: WDC 10:46 | PROVIDERS: ATTENDING PHYSICIAN Family Medicine | DX: Z12.31 Encounter for screening mammogram for malignant neoplasm of breast (principal) | CPT/HCPCS: 77063; 77067 ==